=== PATIENT | female | born 1980 | race Caucasian/White ===

== ENCOUNTER → 2024-09-05 10:51 | Outpatient (REF) | payer BC, SELFPAY | LOC: RAD 10:51 | PROVIDERS: ATTENDING PHYSICIAN Podiatrist Foot & Ankle Surgery; FAMILY PHYSICIAN Family Medicine | DX: S86.311A Strain of muscle(s) and tendon(s) of peroneal muscle group at lower leg level, right leg, initial encounter (principal); M65.979 Unspecified synovitis and tenosynovitis, unspecified ankle and foot | CPT/HCPCS: 76882 ==